=== PATIENT | male | born 1965 ===

== ENCOUNTER 2022-05-16 08:25 | Day surgery (SDC) | payer OTHER ==
[~2022-05-16] VITALS: Ht 175.3 cm; Wt 102.1 kg
[~2022-05-16 08:25] MED LIST: SIMVASTATIN
[2022-05-16] MEDS ORDERED: TYLENOL ARTHRI650 MG PO (11:29)
[2022-05-16] MEDS ORDERED: KETO10TA2 PO (11:29)
[2022-05-16] MEDS ORDERED: TRAMADOL HCL50 MG PO (11:29)
[2022-05-16] MEDS ORDERED: MIRALAX17 GM PO (11:29)
== END 2022-05-16 18:50 | disposition home or self-care (01) ==
LOC: CIR.AMB 08:25
PROVIDERS: ATTEND Surgery
DX: K40.20 Bilateral inguinal hernia, without obstruction or gangrene, not specified as recurrent (principal); K42.9 Umbilical hernia without obstruction or gangrene; E78.49 Other hyperlipidemia; Z87.891 Personal history of nicotine dependence
CPT/HCPCS: 49650; 49592; C1781